=== PATIENT | female | born 1950 | race Caucasian/White ===

== ENCOUNTER 2018-05-06 05:48 | Day surgery (SDC) | payer MEDICARE, OTHER ==
[2018-05-06] MEDS ORDERED: LACTATED RINGERS 1,000 ML ONE (06:04)
[2018-05-06] MEDS ORDERED: PROPOFOL 200 MG/20 ML VIAL IV ONE (07:00)
[2018-05-06 10:51] VITALS: BP 113/66; TEMP 97.7; O2SAT 97
--- NOTE | 2018-05-06 11:19 | OP ---
DATE OF PROCEDURE: 05/06/18 PREPROCEDURE DIAGNOSIS: 1. Surveillance colonoscopy, history of colonic polyps. POSTPROCEDURE DIAGNOSIS: 1. Colonic polyps. 2. Internal hemorrhoids. PROCEDURE: 1. Colonoscopy. SURGEON: Jeff Orozco MD COMPLICATIONS: No immediate complications. SEDATION: The patient was sedated via IV propofol by the Anesthesia Department. CONSENT: Prior to the procedure, risks, benefits and alternatives to the therapy were discussed with the patient. The risks included bleeding, infection , perforation and . The patient agreed to the procedure and signed a consent. PREPROCEDURE ANESTHESIA ASSESSMENT: An examination revealed no contraindication to sedation. Airway examination demonstrated a Mallampati class type 2, ASA grade assessment type 2. Throughout the procedure, the patient's blood pressure and additional vital signs were closely monitored. PROCEDURE: The patient was placed in the left lateral decubitus position and a rectal examination was performed. The rectal examination was within normal limits. The Olympus colonoscope was passed in the anus, rectum, traversing the colon to the level of the cecum as identified by the appendiceal orifice. The scope was retracted and the mucosa was visualized. The entirety of the exam was performed under direct visualization. Retroflexion was performed in the rectum. Preparation quality was good. The withdrawal time was greater than 6 minutes. The patient tolerated the procedure well. FINDINGS: 1. Two colonic polyps were found. They measured 5 to 8 mm. The first one was found in the cecum and removed with cold snare. The second one was found in the hepatic flexure, also removed with cold snare. Both polyps were completely retrieved. 2. Medium sized non-bleeding hemorrhoids were found in retroflexion. 3. Otherwise, the colonic examination was normal. RECOMMENDATION: 1. Return the patient home. 2. Resume previous diet. 3. Repeat colonoscopy in the subsequent 5 years. 4. Primary care physician may check fecal occult blood test/Cologuard in the following 3 years' time. 5. Findings were discussed with the patient and family members. 6. Return to referring physician's office as previously scheduled. #[id number] MTDD
== END 2018-05-06 10:30 | disposition home or self-care (01) ==
LOC: AMB 05:48
PROVIDERS: ATTEND Internal Medicine Gastroenterology
DX: Z12.11 Encounter for screening for malignant neoplasm of colon (principal); D12.0 Benign neoplasm of cecum; D12.3 Benign neoplasm of transverse colon; K64.8 Other hemorrhoids; Z86.010 Personal history of colon polyps; Z90.79 Acquired absence of other genital organ(s); Z79.899 Other long term (current) drug therapy
CPT/HCPCS: 00812; 45385; 88305; J3490; J7120